=== PATIENT | male | born 1960 | race Caucasian/White ===

== ENCOUNTER 2019-12-18 23:44 | Emergency (ER) | payer MEDICAID ==
[~2019-12-18] VITALS: Ht 182.9 cm; Wt 95.3 kg
--- NOTE | 2019-12-19 00:04 | NUR ---
Dr. Ernst at bedside for MSE.
[2019-12-19] MEDS ORDERED: GABAPENTIN 300 MG CAPSULE ONE (00:14)
[2019-12-19] MEDS ORDERED: GABAPENTIN 300 MG CAPSULE PO ONE (00:15)
--- NOTE | 2019-12-19 00:18 | NUR ---
Patient given written and verbal discharge instructions. Patient verbalizes understanding of instructions. Patient is ambulatory with steady gait. Refuses offer of residential placement. Patient given list of available shelters in surrounding area. Pt provided with food and juice per pt request, will arrange own transportation, refuses all other services at this time.
[2019-12-19 00:30] VITALS: BP 110/71
== END 2019-12-19 00:41 | disposition home or self-care (01) ==
LOC: ER 23:47
DX: M54.12 Radiculopathy, cervical region (principal); Z59.0 Homelessness; R73.03 Prediabetes; Z86.73 Personal history of transient ischemic attack (TIA), and cerebral infarction without residual deficits
CPT/HCPCS: A4663